=== PATIENT | female | born 1995 | race Hispanic/Latino ===

== ENCOUNTER 2017-05-20 19:40 | Inpatient (IN) | payer MEDICAID ==
[2017-05-20] MEDS ORDERED: POLYCILLIN/NS 2 GM/100 ML 2 GM/100 ML BAG IV ONE (20:36)
[2017-05-20] MEDS ORDERED: LACTATED RINGERS 1,000 ML IV SCH (22:00)
[2017-05-20] MEDS: PITOCin/NS 30 UNIT/500ML 30 UNITS/500 ML BAG IV SCH (22:49)
[2017-05-20 23:21] LABS: Hematocrit 39.5 % (30.3-42.9); Hemoglobin 13.1 gm/dl (10.1-14.3); Mean Corpuscular HGB Conc 33 % (30-34); Mean Corpuscular Hemoglobin 27 pg (28-32); Mean Corpuscular Volume 82 fl (79-97); Platelet Count 148 K/mm3 (140-440); Red Blood Count 4.84 M/mm3 (3.65-5.03); White Blood Count 12.5 K/mm3 (4.5-11.0)
[2017-05-20] MEDS ORDERED: XYLOCAINE 2% INFILTRATI ONE (23:35)
[2017-05-20] MEDS ORDERED: ePHEDrine SULFATE IV PRN (23:35)
[2017-05-20] MEDS ORDERED: MINERAL OIL PO PRN (23:35)
[2017-05-20] MEDS ORDERED: BRETHINE IVP PRN (23:35)
[2017-05-20] MEDS ORDERED: BRETHINE SUB-Q PRN (23:35)
[2017-05-20] MEDS ORDERED: PITOCin/NS 20 UNIT/1000ML DRIP 20 UNITS/1,000 ML BAG IV SCH (23:45)
[2017-05-21] MEDS: STADOL IV PRN ×2 (00:22→04:05)
--- NOTE | 2017-05-21 00:45 | History and Physical Report ---
History of Present Illness Date of examination: 05/21/17 Date of admission: 05/20/17 20:27 Chief complaint: My water broke History of present illness: Late transfer of care at 30 5/7 Weeks, Co-managed with [facility] due to obesity and late care. Audible Cardiac Arrhythmia heard on last visit. Past History Past Medical History: no pertinent history Past Surgical History: no surgical history Family/Genetic History: none Social history: no significant social history, - Obstetrical History Expected Date of Delivery: 05/23/17 Actual Gestation: 39 Week(s) 5 Day(s) : 1 Medications and Allergies Allergies Allergy/AdvReac Type Severity Reaction Status Date / Time No Known Allergies Allergy Verified 05/20/17 19:49 Home Medications Medication Instructions Recorded Confirmed Last Taken Type Tablet 1 tab PO DAILY 05/20/17 05/20/17 05/20/17 08:30 History Active Meds: Active Medications Butorphanol Tartrate (Stadol) 2 mg IV Q2H PRN PRN Reason: Labor Pain Last Admin: 05/21/17 00:22 Dose: 2 mg Oxytocin/Sodium Chloride (Pitocin/Ns 30 Unit/500ml) 30 units in 500 mls @ 2 mls /hr IV TITR GERARDO PRN Reason: Protocol Last Admin: 05/20/17 22:49 Dose: 2 ml/hr, 2 mls/hr Ampicillin Sodium (Polycillin/Ns 1 Gm/50 Ml) 1 gm in 50 mls @ 100 mls/hr IV Q4H GERARDO PRN Reason: Protocol Lactated Ringer's (Lactated Ringers) 1,000 mls @ 125 mls/hr IV DIRECT GERARDO Oxytocin/Sodium Chloride (Pitocin/Ns 20 Unit/1000ml Drip) 20 units in 1,000 mls @ 125 mls/hr IV DIRECT GERARDO Mineral Oil (Mineral Oil) 30 ml PO QHS PRN PRN Reason: Constipation Review of Systems All systems: negative - Vital Signs Vital signs: Vital Signs Pulse Pulse Ox 97 H 98 05/20/17 19:57 05/20/17 19:57 Temp Pulse Resp BP Pulse Ox 98.2 F 86 18 120/66 95 05/20/17 22:00 05/21/17 00:41 05/20/17 22:00 05/21/17 00:34 05/21/17 00:41 - Physical Exam Breasts: Positive: normal Cardiovascular: Regular rate Lungs: Positive: Clear to auscultation, Normal air movement Abdomen: Positive: normal appearance, soft, normal bowel sounds Genitourinary (Female): Positive: normal external genitalia, normal perenium Vagina: Positive: normal moisture Uterus: Positive: enlarged Anus/Rectum: Positive: normal perianal skin Extremities: Positive: normal - Obstetrical FHR: category 1 Uterine Contraction Monitor Mode: External Cervical Dilatation: 1.5 (Moderate amount of clear fluid leaking ) Cervical Effacement Percentage: 60 station: -3 Uterine Contraction Pattern: Regular Uterine Tone Measurement Phase: Resting Uterine Contraction Intensity: Moderate Results Result Diagrams: 05/20/17 22:08 Abnormal lab results 05/20/17 Range/Units 22:08 WBC 12.5 H (4.5-11.0) K/mm3 MCH 27 L (28-32) pg RDW 16.0 H (13.2-15.2) % All other labs normal. Assessment and Plan A: IUP @ 39 5/7 weeks Category I Tracing PROM GBs Positive P: Admit to L&D per Routine Orders Pitocin Induction GBS Prophylaxis
[2017-05-21] MEDS: POLYCILLIN/NS 1 GM/50 ML 1 GM/50 ML BAG IV SCH ×5 (02:19→18:43)
[2017-05-21] MEDS: LACTATED RINGERS 1,000 ML IV SCH ×3 (04:03→22:21)
[2017-05-21] MEDS ORDERED: ePHEDrine SULFATE ONE (07:52)
--- NOTE | 2017-05-21 08:41 | Anesthesia Consultation ---
Anesthesia Consult and Med Hx Date of service: 05/21/17 - Airway Anesthetic Teeth Evaluation: Good ROM Head & Neck: Adequate Mental/Hyoid Distance: Adequate Mallampati Class: Class III Intubation Access Assessment: Possibly Difficult - Pre-Operative Health Status ASA Pre-Surgery Classification: ASA3 Proposed Anesthetic Plan: Epidural, Spinal - Pulmonary Hx Asthma: No COPD: No Hx Pneumonia: No - Cardiovascular System Hx Hypertension: No - Central Nervous System Hx Seizures: No Hx Psychiatric Problems: No - Endocrine Hx Renal Disease: No Hx End Stage Renal Disease: No Hx Hypothyroidism: No Hx Hyperthyroidism: No - Hematic Hx Anemia: No Hx Sickle Cell Disease: No - Other Systems Hx Alcohol Use: No Hx Obesity: Yes (BMI 41.3)
[2017-05-21] MEDS ORDERED: NARCAN 2 MG/2 ML IV PRN (09:30)
[2017-05-21] MEDS ORDERED: ePHEDrine SULFATE IV PRN (09:30)
[2017-05-21] MEDS: fentaNYL-BUPIV 2 MCG/ML-0.125% 200 MCG/100 ML BAG EPIDURAL SCH ×2 (09:43→16:58)
--- NOTE | 2017-05-21 10:28 | Progress Note ---
Assessment and Plan A: IUP @ 39 6/7 weeks Category I Tracing PROM GBS Positive P: Continue Pitocin Induction Cook's Cervical Ripening Balloon placed Continue GBS Prophylaxis Subjective - Subjective Date of service: 05/21/17 Interval history: Late transfer of care at 30 5/7 Weeks, Co-managed with [facility] due to obesity and late care. Audible Cardiac Arrhythmia heard on last visit. Patient reports: loss of fluid, other (Stadol was ineffective; Requested Epidural; Currently resting well under epidural anesthesia) Objective - Vital Signs Vital Signs: Vital Signs - 12hr 05/20/17 05/20/17 05/20/17 22:28 22:33 22:38 Temperature Pulse Rate 101 H 101 H 96 H Respiratory Rate Blood Pressure O2 Sat by Pulse 95 96 96 Oximetry 05/20/17 05/20/17 05/20/17 22:43 22:48 22:53 Temperature Pulse Rate 93 H 86 94 H Respiratory Rate Blood Pressure O2 Sat by Pulse 96 96 96 Oximetry 05/20/17 05/20/17 05/20/17 22:57 22:58 23:03 Temperature Pulse Rate 90 93 H 90 Respiratory Rate Blood Pressure 93/51 O2 Sat by Pulse 96 96 Oximetry 05/20/17 05/20/17 05/20/17 23:08 23:13 23:18 Temperature Pulse Rate 92 H 93 H 89 Respiratory Rate Blood Pressure O2 Sat by Pulse 96 95 96 Oximetry 05/20/17 05/20/17 05/20/17 23:23 23:27 23:28 Temperature Pulse Rate 85 86 87 Respiratory Rate Blood Pressure 95/55 O2 Sat by Pulse 96 97 Oximetry 05/20/17 05/20/17 05/20/17 23:33 23:38 23:43 Temperature Pulse Rate 91 H 92 H 90 Respiratory Rate Blood Pressure O2 Sat by Pulse 96 96 96 Oximetry 05/20/17 05/20/17 05/20/17 23:48 23:53 23:58 Temperature Pulse Rate 84 87 83 Respiratory Rate Blood Pressure O2 Sat by Pulse 96 96 96 Oximetry 05/21/17 05/21/17 05/21/17 00:00 00:03 00:04 Temperature 98 F Pulse Rate 92 H 83 Respiratory 20 Rate Blood Pressure 127/76 O2 Sat by Pulse 97 Oximetry 05/21/17 05/21/17 05/21/17 00:08 00:13 00:21 Temperature Pulse Rate 90 92 H 97 H Respiratory Rate Blood Pressure O2 Sat by Pulse 97 95 96 Oximetry 05/21/17 05/21/17 05/21/17 00:26 00:31 00:34 Temperature Pulse Rate 95 H 82 81 Respiratory Rate Blood Pressure 120/66 O2 Sat by Pulse 96 97 Oximetry 05/21/17 05/21/17 05/21/17 00:36 00:41 00:46 Temperature Pulse Rate 95 H 86 87 Respiratory Rate Blood Pressure O2 Sat by Pulse 95 95 94 Oximetry 05/21/17 05/21/17 05/21/17 00:51 00:56 01:01 Temperature Pulse Rate 97 H 88 81 Respiratory Rate Blood Pressure O2 Sat by Pulse 95 93 94 Oximetry 05/21/17 05/21/17 05/21/17 01:05 01:06 01:11 Temperature Pulse Rate 85 100 H 81 Respiratory Rate Blood Pressure 124/68 O2 Sat by Pulse 96 95 Oximetry 05/21/17 05/21/17 05/21/17 01:16 01:21 01:26 Temperature Pulse Rate 81 83 80 Respiratory Rate Blood Pressure O2 Sat by Pulse 94 94 94 Oximetry 05/21/17 05/21/17 05/21/17 01:31 01:35 01:36 Temperature Pulse Rate 85 89 96 H Respiratory Rate Blood Pressure 120/59 O2 Sat by Pulse 94 96 Oximetry 05/21/17 05/21/17 05/21/17 01:41 01:46 01:51 Temperature Pulse Rate 94 H 82 94 H Respiratory Rate Blood Pressure O2 Sat by Pulse 95 94 95 Oximetry 05/21/17 05/21/17 05/21/17 01:57 02:00 02:02 Temperature 98.1 F Pulse Rate 93 H 94 H Respiratory 18 Rate Blood Pressure O2 Sat by Pulse 95 94 Oximetry 05/21/17 05/21/17 05/21/17 02:04 02:16 02:21 Temperature Pulse Rate 98 H 102 H 96 H Respiratory Rate Blood Pressure 131/66 O2 Sat by Pulse 96 96 Oximetry 05/21/17 05/21/17 05/21/17 02:26 02:31 02:34 Temperature Pulse Rate 97 H 101 H 96 H Respiratory Rate Blood Pressure 113/60 O2 Sat by Pulse 96 96 Oximetry 05/21/17 05/21/17 05/21/17 02:36 02:41 02:46 Temperature Pulse Rate 85 95 H 99 H Respiratory Rate Blood Pressure O2 Sat by Pulse 96 95 96 Oximetry 05/21/17 05/21/17 05/21/17 02:51 02:56 03:01 Temperature Pulse Rate 92 H 100 H 110 H Respiratory Rate Blood Pressure O2 Sat by Pulse 96 96 96 Oximetry 05/21/17 05/21/17 05/21/17 03:04 03:06 03:11 Temperature Pulse Rate 92 H 94 H 90 Respiratory Rate Blood Pressure 129/61 O2 Sat by Pulse 97 97 Oximetry 05/21/17 05/21/17 05/21/17 03:16 03:21 03:26 Temperature Pulse Rate 87 89 88 Respiratory Rate Blood Pressure O2 Sat by Pulse 96 94 95 Oximetry 05/21/17 05/21/17 05/21/17 03:31 03:34 03:36 Temperature Pulse Rate 89 90 93 H Respiratory Rate Blood Pressure 110/56 O2 Sat by Pulse 95 94 Oximetry 05/21/17 05/21/17 05/21/17 03:41 03:46 03:51 Temperature Pulse Rate 96 H 89 89 Respiratory Rate Blood Pressure O2 Sat by Pulse 95 95 96 Oximetry 05/21/17 05/21/17 05/21/17 03:56 04:00 04:01 Temperature 98.2 F Pulse Rate 95 H 80 Respiratory 18 Rate Blood Pressure O2 Sat by Pulse 96 97 Oximetry 05/21/17 05/21/17 05/21/17 04:04 04:06 04:11 Temperature Pulse Rate 89 88 83 Respiratory Rate Blood Pressure 124/65 O2 Sat by Pulse 97 96 Oximetry 05/21/17 05/21/17 05/21/17 04:16 04:21 04:26 Temperature Pulse Rate 84 89 82 Respiratory Rate Blood Pressure O2 Sat by Pulse 95 95 95 Oximetry 05/21/17 05/21/17 05/21/17 04:31 04:34 04:36 Temperature Pulse Rate 87 85 82 Respiratory Rate Blood Pressure 115/57 O2 Sat by Pulse 95 95 Oximetry 05/21/17 05/21/17 05/21/17 04:41 04:46 04:51 Temperature Pulse Rate 77 71 74 Respiratory Rate Blood Pressure O2 Sat by Pulse 95 95 95 Oximetry 05/21/17 05/21/17 05/21/17 04:56 05:01 05:04 Temperature Pulse Rate 81 72 73 Respiratory Rate Blood Pressure 109/59 O2 Sat by Pulse 95 95 Oximetry 05/21/17 05/21/17 05/21/17 05:06 05:11 05:16 Temperature Pulse Rate 76 90 103 H Respiratory Rate Blood Pressure O2 Sat by Pulse 94 96 96 Oximetry 05/21/17 05/21/17 05/21/17 05:21 05:26 05:31 Temperature Pulse Rate 86 85 84 Respiratory Rate Blood Pressure O2 Sat by Pulse 96 96 97 Oximetry 05/21/17 05/21/17 05/21/17 05:36 05:41 05:57 Temperature Pulse Rate 85 81 85 Respiratory Rate Blood Pressure 117/56 O2 Sat by Pulse 97 97 97 Oximetry 05/21/17 05/21/17 05/21/17 06:00 06:02 06:04 Temperature 98 F Pulse Rate 79 75 Respiratory 18 Rate Blood Pressure 119/71 O2 Sat by Pulse 97 Oximetry 05/21/17 05/21/17 05/21/17 06:07 06:12 06:17 Temperature Pulse Rate 82 81 86 Respiratory Rate Blood Pressure O2 Sat by Pulse 97 96 95 Oximetry 05/21/17 05/21/17 05/21/17 06:22 06:27 06:32 Temperature Pulse Rate 82 80 83 Respiratory Rate Blood Pressure O2 Sat by Pulse 96 95 96 Oximetry 05/21/17 05/21/17 05/21/17 06:34 06:37 06:42 Temperature Pulse Rate 85 79 82 Respiratory Rate Blood Pressure 116/77 O2 Sat by Pulse 96 96 Oximetry 05/21/17 05/21/17 05/21/17 06:47 06:52 06:57 Temperature Pulse Rate 74 74 89 Respiratory Rate Blood Pressure O2 Sat by Pulse 96 96 95 Oximetry 05/21/17 05/21/17 05/21/17 07:02 07:04 07:21 Temperature Pulse Rate 86 82 Respiratory 18 Rate Blood Pressure 121/78 O2 Sat by Pulse 96 Oximetry 05/21/17 05/21/17 05/21/17 08:23 08:27 08:28 Temperature Pulse Rate 87 88 83 Respiratory Rate Blood Pressure 129/80 117/77 O2 Sat by Pulse 99 99 Oximetry 05/21/17 05/21/17 05/21/17 08:29 08:31 08:33 Temperature Pulse Rate 85 88 90 Respiratory Rate Blood Pressure 116/73 119/76 112/76 O2 Sat by Pulse 83 L Oximetry 05/21/17 05/21/17 05/21/17 08:34 08:35 08:37 Temperature Pulse Rate 110 H 102 H Respiratory Rate Blood Pressure 114/79 112/59 O2 Sat by Pulse 85 Oximetry 05/21/17 05/21/17 05/21/17 08:38 08:39 08:41 Temperature Pulse Rate 95 H 94 H 93 H Respiratory Rate Blood Pressure 106/58 93/52 O2 Sat by Pulse 98 Oximetry 05/21/17 05/21/17 05/21/17 08:43 08:48 08:53 Temperature Pulse Rate 94 H 86 94 H Respiratory Rate Blood Pressure 97/54 O2 Sat by Pulse 98 97 97 Oximetry 05/21/17 05/21/17 05/21/17 08:54 08:58 09:03 Temperature Pulse Rate 90 101 H 86 Respiratory Rate Blood Pressure 104/59 O2 Sat by Pulse 97 97 Oximetry 05/21/17 05/21/17 05/21/17 09:08 09:10 09:13 Temperature Pulse Rate 83 89 82 Respiratory Rate Blood Pressure 109/66 O2 Sat by Pulse 97 97 Oximetry 05/21/17 05/21/17 05/21/17 09:18 09:23 09:25 Temperature Pulse Rate 80 77 75 Respiratory Rate Blood Pressure 109/65 O2 Sat by Pulse 96 96 Oximetry 05/21/17 05/21/17 05/21/17 09:28 09:33 09:38 Temperature Pulse Rate 79 79 75 Respiratory Rate Blood Pressure O2 Sat by Pulse 95 95 95 Oximetry 05/21/17 05/21/17 05/21/17 09:39 09:43 09:48 Temperature Pulse Rate 77 79 84 Respiratory Rate Blood Pressure 109/65 O2 Sat by Pulse 96 95 Oximetry 05/21/17 05/21/17 05/21/17 09:53 09:54 09:58 Temperature Pulse Rate 80 75 79 Respiratory Rate Blood Pressure 111/63 O2 Sat by Pulse 96 96 Oximetry 05/21/17 05/21/17 05/21/17 10:03 10:08 10:10 Temperature Pulse Rate 80 80 81 Respiratory Rate Blood Pressure 108/61 O2 Sat by Pulse 97 96 Oximetry 05/21/17 05/21/17 05/21/17 10:13 10:18 10:23 Temperature Pulse Rate 78 84 85 Respiratory Rate Blood Pressure O2 Sat by Pulse 99 98 98 Oximetry 05/21/17 10:25 Temperature Pulse Rate 82 Respiratory Rate Blood Pressure 115/70 O2 Sat by Pulse Oximetry - Exam Breasts: normal Cardiovascular: Regular rate Lungs: Clear to auscultation, Normal air movement Abdomen: Present: normal appearance, soft, normal bowel sounds Uterus: Present: normal, firm, fundal height above umbilicus FHR: category 1 Uterine Contraction Monitor Mode: External Cervical Dilatation: 2 (Leaking a moderate amount of clear fluid) Cervical Effacement Percentage: 40 station: -3 Uterine Contraction Pattern: Regular Uterine Tone Measurement Phase: Resting Uterine Contraction Intensity: Mild Extremities: normal - Labs Labs: Abnormal Labs 05/20/17 22:08 WBC 12.5 H MCH 27 L RDW 16.0 H Laboratory Results - last 24 hr 05/20/17 05/20/17 22:08 22:08 WBC 12.5 H RBC 4.84 Hgb 13.1 Hct 39.5 MCV 82 MCH 27 L MCHC 33 RDW 16.0 H Plt Count 148 Blood Type AB POSITIVE Antibody Screen Negative
--- NOTE | 2017-05-21 18:49 | Progress Note ---
Assessment and Plan A: IUP @ 39 6/7 weeks Category I Tracing PROM Prolongled Rupture (24hours) GBS Positive P: Continue Pitocin Induction Continue GBS Prophylaxis Add Clindamycin 900mg q 8 hours Internals x2 Subjective - Subjective Date of service: 05/21/17 Interval history: Late transfer of care at 30 5/7 Weeks, Co-managed with [facility] due to obesity and late care. Audible Cardiac Arrhythmia heard on last visit. Patient reports: other (Resting well under epidural) Objective - Vital Signs Vital Signs: Vital Signs - 12hr 05/21/17 05/21/17 05/21/17 06:47 06:52 06:57 Temperature Pulse Rate 74 74 89 Respiratory Rate Blood Pressure O2 Sat by Pulse 96 96 95 Oximetry 05/21/17 05/21/17 05/21/17 07:02 07:04 07:21 Temperature Pulse Rate 86 82 Respiratory 18 Rate Blood Pressure 121/78 O2 Sat by Pulse 96 Oximetry 05/21/17 05/21/17 05/21/17 08:23 08:27 08:28 Temperature Pulse Rate 87 88 83 Respiratory Rate Blood Pressure 129/80 117/77 O2 Sat by Pulse 99 99 Oximetry 05/21/17 05/21/17 05/21/17 08:29 08:31 08:33 Temperature Pulse Rate 85 88 90 Respiratory Rate Blood Pressure 116/73 119/76 112/76 O2 Sat by Pulse 83 L Oximetry 05/21/17 05/21/17 05/21/17 08:34 08:35 08:37 Temperature Pulse Rate 110 H 102 H Respiratory Rate Blood Pressure 114/79 112/59 O2 Sat by Pulse 85 Oximetry 05/21/17 05/21/17 05/21/17 08:38 08:39 08:41 Temperature Pulse Rate 95 H 94 H 93 H Respiratory Rate Blood Pressure 106/58 93/52 O2 Sat by Pulse 98 Oximetry 05/21/17 05/21/17 05/21/17 08:43 08:48 08:53 Temperature Pulse Rate 94 H 86 94 H Respiratory Rate Blood Pressure 97/54 O2 Sat by Pulse 98 97 97 Oximetry 05/21/17 05/21/17 05/21/17 08:54 08:58 09:03 Temperature Pulse Rate 90 101 H 86 Respiratory Rate Blood Pressure 104/59 O2 Sat by Pulse 97 97 Oximetry 05/21/17 05/21/1717 09:08 09:10 09:13 Temperature Pulse Rate 83 89 82 Respiratory Rate Blood Pressure 109/66 O2 Sat by Pulse 97 97 Oximetry 05/21/17 05/21/17 05/21/17 09:18 09:23 09:25 Temperature Pulse Rate 80 77 75 Respiratory Rate Blood Pressure 109/65 O2 Sat by Pulse 96 96 Oximetry 05/21/17 05/21/17 05/21/17 09:28 09:33 09:38 Temperature Pulse Rate 79 79 75 Respiratory Rate Blood Pressure O2 Sat by Pulse 95 95 95 Oximetry 05/21/17 05/21/17 05/21/17 09:39 09:43 09:48 Temperature Pulse Rate 77 79 84 Respiratory Rate Blood Pressure 109/65 O2 Sat by Pulse 96 95 Oximetry 05/21/17 05/21/17 05/21/17 09:53 09:54 09:58 Temperature Pulse Rate 80 75 79 Respiratory Rate Blood Pressure 111/63 O2 Sat by Pulse 96 96 Oximetry 05/21/17 05/21/17 05/21/17 10:03 10:08 10:10 Temperature Pulse Rate 80 80 81 Respiratory Rate Blood Pressure 108/61 O2 Sat by Pulse 97 96 Oximetry 05/21/17 05/21/17 05/21/17 10:13 10:18 10:23 Temperature Pulse Rate 78 84 85 Respiratory Rate Blood Pressure O2 Sat by Pulse 99 98 98 Oximetry 05/21/17 05/21/17 05/21/17 10:25 10:28 10:33 Temperature Pulse Rate 82 85 79 Respiratory Rate Blood Pressure 115/70 O2 Sat by Pulse 99 98 Oximetry 05/21/17 05/21/17 05/21/17 10:38 10:41 10:43 Temperature Pulse Rate 76 80 78 Respiratory Rate Blood Pressure 117/70 O2 Sat by Pulse 98 96 Oximetry 05/21/17 05/21/17 05/21/17 10:48 10:53 10:54 Temperature Pulse Rate 74 72 78 Respiratory Rate Blood Pressure 113/65 O2 Sat by Pulse 96 97 Oximetry 05/21/17 05/21/17 05/21/17 10:58 11:03 11:08 Temperature Pulse Rate 78 75 73 Respiratory Rate Blood Pressure O2 Sat by Pulse 95 97 96 Oximetry 05/21/17 05/21/17 05/21/17 11:09 11:13 11:18 Temperature Pulse Rate 78 78 76 Respiratory Rate Blood Pressure 108/62 O2 Sat by Pulse 96 98 Oximetry 05/21/17 05/21/17 05/21/17 11:23 11:24 11:28 Temperature Pulse Rate 75 80 75 Respiratory Rate Blood Pressure 112/62 O2 Sat by Pulse 98 97 Oximetry 05/21/17 05/21/17 05/21/17 11:33 11:38 11:39 Temperature Pulse Rate 76 80 92 H Respiratory Rate Blood Pressure 104/60 O2 Sat by Pulse 95 96 Oximetry 05/21/17 05/21/17 05/21/17 11:43 11:48 11:53 Temperature Pulse Rate 73 77 83 Respiratory Rate Blood Pressure O2 Sat by Pulse 97 97 96 Oximetry 05/21/17 05/21/17 05/21/17 11:55 11:58 12:03 Temperature Pulse Rate 81 75 76 Respiratory Rate Blood Pressure 106/57 O2 Sat by Pulse 96 95 Oximetry 05/21/17 05/21/17 05/21/17 12:08 12:11 12:13 Temperature Pulse Rate 80 81 76 Respiratory Rate Blood Pressure 106/62 O2 Sat by Pulse 95 97 Oximetry 05/21/17 05/21/17 05/21/17 12:18 12:23 12:24 Temperature Pulse Rate 73 84 85 Respiratory Rate Blood Pressure 104/56 O2 Sat by Pulse 96 95 Oximetry 05/21/17 05/21/17 05/21/17 12:28 12:33 12:38 Temperature Pulse Rate 83 75 83 Respiratory Rate Blood Pressure O2 Sat by Pulse 98 97 99 Oximetry 05/21/17 05/21/17 05/21/17 12:40 12:43 12:48 Temperature Pulse Rate 88 83 79 Respiratory Rate Blood Pressure 107/64 O2 Sat by Pulse 98 97 Oximetry 05/21/17 05/21/17 05/21/17 12:53 12:56 12:58 Temperature Pulse Rate 90 78 88 Respiratory Rate Blood Pressure 119/70 O2 Sat by Pulse 96 98 Oximetry 05/21/17 05/21/17 05/21/17 13:03 13:08 13:09 Temperature Pulse Rate 90 85 78 Respiratory Rate Blood Pressure 122/69 O2 Sat by Pulse 98 98 Oximetry 05/21/17 05/21/17 05/21/17 13:13 13:18 13:23 Temperature Pulse Rate 95 H 77 73 Respiratory Rate Blood Pressure O2 Sat by Pulse 99 98 97 Oximetry 05/21/17 05/21/17 05/21/17 13:24 13:28 13:33 Temperature Pulse Rate 82 81 79 Respiratory Rate Blood Pressure 132/76 O2 Sat by Pulse 99 99 Oximetry 05/21/17 05/21/17 05/21/17 13:38 13:39 13:43 Temperature Pulse Rate 77 77 83 Respiratory Rate Blood Pressure 133/73 O2 Sat by Pulse 97 98 Oximetry 05/21/17 05/21/17 05/21/17 13:48 13:51 13:53 Temperature 98.6 F Pulse Rate 80 82 Respiratory 20 Rate Blood Pressure O2 Sat by Pulse 98 97 Oximetry 05/21/17 05/21/17 05/21/17 13:54 13:58 14:03 Temperature Pulse Rate 84 78 80 Respiratory Rate Blood Pressure 118/64 O2 Sat by Pulse 97 97 Oximetry 05/21/17 05/21/17 05/21/17 14:08 14:09 14:13 Temperature Pulse Rate 77 84 79 Respiratory Rate Blood Pressure 124/80 O2 Sat by Pulse 97 97 Oximetry 05/21/17 05/21/17 05/21/17 14:18 14:23 14:25 Temperature Pulse Rate 81 81 76 Respiratory Rate Blood Pressure 127/67 O2 Sat by Pulse 98 97 Oximetry 05/21/17 05/21/17 05/21/17 14:28 14:33 14:38 Temperature Pulse Rate 80 77 78 Respiratory Rate Blood Pressure O2 Sat by Pulse 95 95 95 Oximetry 05/21/17 05/21/17 05/21/17 14:39 14:43 14:48 Temperature Pulse Rate 75 76 77 Respiratory Rate Blood Pressure 120/56 O2 Sat by Pulse 95 94 Oximetry 05/21/17 05/21/17 05/21/17 14:53 14:54 14:58 Temperature Pulse Rate 75 75 77 Respiratory Rate Blood Pressure 125/60 O2 Sat by Pulse 94 94 Oximetry 05/21/17 05/21/17 05/21/17 15:03 15:06 15:08 Temperature 98.5 F Pulse Rate 83 94 H Respiratory 22 Rate Blood Pressure O2 Sat by Pulse 94 95 Oximetry 05/21/17 05/21/17 05/21/17 15:10 15:13 15:18 Temperature Pulse Rate 87 83 92 H Respiratory Rate Blood Pressure 136/67 O2 Sat by Pulse 97 98 Oximetry 05/21/17 05/21/17 05/21/17 15:23 15:25 15:28 Temperature Pulse Rate 101 H 90 89 Respiratory Rate Blood Pressure 134/74 O2 Sat by Pulse 98 98 Oximetry 05/21/17 05/21/17 05/21/17 15:33 15:38 15:39 Temperature Pulse Rate 81 81 88 Respiratory Rate Blood Pressure 112/64 O2 Sat by Pulse 97 96 Oximetry 05/21/17 05/21/17 05/21/17 15:43 15:48 15:53 Temperature Pulse Rate 82 85 86 Respiratory Rate Blood Pressure O2 Sat by Pulse 94 96 94 Oximetry 05/21/17 05/21/17 05/21/17 15:54 15:58 16:03 Temperature Pulse Rate 82 79 84 Respiratory Rate Blood Pressure 122/64 O2 Sat by Pulse 95 95 Oximetry 05/21/17 05/21/17 05/21/17 16:08 16:10 16:13 Temperature Pulse Rate 86 104 H 82 Respiratory Rate Blood Pressure 116/61 O2 Sat by Pulse 96 95 Oximetry 05/21/17 05/21/17 05/21/17 16:18 16:23 16:24 Temperature Pulse Rate 79 82 84 Respiratory Rate Blood Pressure 122/62 O2 Sat by Pulse 96 96 Oximetry 05/21/17 05/21/17 05/21/17 16:28 16:33 16:38 Temperature Pulse Rate 81 96 H 95 H Respiratory Rate Blood Pressure O2 Sat by Pulse 95 97 98 Oximetry 05/21/17 05/21/17 05/21/17 16:40 16:43 16:48 Temperature Pulse Rate 93 H 92 H 96 H Respiratory Rate Blood Pressure 105/54 O2 Sat by Pulse 98 98 Oximetry 05/21/17 05/21/17 05/21/17 16:53 16:54 16:58 Temperature Pulse Rate 99 H 96 H 94 H Respiratory Rate Blood Pressure 101/59 O2 Sat by Pulse 99 99 Oximetry 05/21/17 05/21/17 05/21/17 17:03 17:08 17:09 Temperature Pulse Rate 93 H 93 H 90 Respiratory Rate Blood Pressure 109/60 O2 Sat by Pulse 98 97 Oximetry 05/21/17 05/21/17 05/21/17 17:13 17:18 17:23 Temperature Pulse Rate 92 H 91 H 92 H Respiratory Rate Blood Pressure O2 Sat by Pulse 98 97 97 Oximetry 05/21/17 05/21/17 05/21/17 17:24 17:28 17:33 Temperature Pulse Rate 92 H 88 88 Respiratory Rate Blood Pressure 106/59 O2 Sat by Pulse 97 96 Oximetry 05/21/17 05/21/17 05/21/17 17:38 17:39 17:43 Temperature Pulse Rate 92 H 85 90 Respiratory Rate Blood Pressure 112/61 O2 Sat by Pulse 96 96 Oximetry 05/21/17 05/21/17 05/21/17 17:48 17:53 17:54 Temperature Pulse Rate 92 H 91 H 86 Respiratory Rate Blood Pressure 111/59 O2 Sat by Pulse 96 96 Oximetry 05/21/17 05/21/17 05/21/17 17:58 18:03 18:08 Temperature Pulse Rate 91 H 92 H 97 H Respiratory Rate Blood Pressure O2 Sat by Pulse 97 96 96 Oximetry 05/21/17 05/21/17 05/21/17 18:11 18:13 18:18 Temperature Pulse Rate 98 H 92 H 90 Respiratory Rate Blood Pressure 115/59 O2 Sat by Pulse 96 96 Oximetry 05/21/17 05/21/17 05/21/17 18:23 18:25 18:29 Temperature Pulse Rate 92 H 103 H Respiratory Rate Blood Pressure 116/64 O2 Sat by Pulse 97 96 Oximetry 05/21/17 05/21/17 05/21/17 18:34 18:39 18:40 Temperature 99.2 F Pulse Rate 110 H 113 H Respiratory 22 Rate Blood Pressure 96/55 O2 Sat by Pulse 98 99 Oximetry 05/21/17 18:44 Temperature Pulse Rate 101 H Respiratory Rate Blood Pressure O2 Sat by Pulse 98 Oximetry - Exam Breasts: normal Cardiovascular: Regular rate Abdomen: Present: normal appearance, soft, normal bowel sounds Uterus: Present: normal, firm, fundal height above umbilicus FHR: category 1 Uterine Contraction Monitor Mode: Internal Cervical Dilatation: 4 (leaking a small amount of clear fluid ) Cervical Effacement Percentage: 80 station: -1 Uterine Contraction Pattern: Regular - Labs Labs: Abnormal Labs 05/20/17 22:08 WBC 12.5 H MCH 27 L RDW 16.0 H Laboratory Results - last 24 hr 05/20/17 05/20/17 22:08 22:08 WBC 12.5 H RBC 4.84 Hgb 13.1 Hct 39.5 MCV 82 MCH 27 L MCHC 33 RDW 16.0 H Plt Count 148 Blood Type AB POSITIVE Antibody Screen Negative
--- NOTE | 2017-05-21 19:27 | Event Note ---
Date: 05/21/17 Dr. Ivis Ferrari Consulted and updated due to prolonged rupture Agrees with current plan of care
[2017-05-21] MEDS: CLEOCIN 900 MG/50 mL 900 MG/50 ML BAG IV SCH (19:28)
[2017-05-22] MEDS: CLEOCIN 900 MG/50 mL 900 MG/50 ML BAG IV SCH (04:55)
[2017-05-22] MEDS: PITOCin/NS 30 UNIT/500ML 30 UNITS/500 ML BAG IV SCH ×4 (07:48→09:11)
[2017-05-22] MEDS ORDERED: POLYCILLIN/NS 1 GM/50 ML 1 GM/50 ML BAG IV SCH (08:00)
[2017-05-22] MEDS: fentaNYL-BUPIV 2 MCG/ML-0.125% 200 MCG/100 ML BAG EPIDURAL SCH (08:33)
[2017-05-22] MEDS: LACTATED RINGERS 1,000 ML IV SCH (08:40)
--- NOTE | 2017-05-22 09:11 | Event Note ---
Date: 05/22/17 O: O: VE anterior rim/C/+1, CAT I tracing, pit increased to 12 mu A: Active labor P: Expect
[2017-05-22] MEDS ORDERED: METHERGINE IM ONE ×2 (10:56→11:06)
[2017-05-22] MEDS ORDERED: CYTOTEC ONE (10:56)
[2017-05-22] MEDS ORDERED: CYTOTEC PR ONE (11:05)
[2017-05-22] MEDS ORDERED: TYLENOL PO PRN (11:17)
--- NOTE | 2017-05-22 11:21 | Procedure Note ---
OB Delivery Note - Delivery Date of Delivery: 05/22/17 Surgeon: PERI JACKSON Estimated blood loss: 200cc - Vaginal Delivery presentation: vertex Delivery position: OA Intrapartum events: meconium (terminal) Delivery induction: oxytocin Delivery augmentation: rupture of membranes Delivery monitor: external FHT, external uterine, internal FHT, internal uterine Route of delivery: Delivery placenta: spontaneous, uterine exploration Delivery cord: 3 umbilical vessels Delivery laceration: vaginal side wall (bilateral first degree) Delivery repair: vicryl Anesthesia: epidural Delivery comments: of a viable male 8# 2 oz on 05/22/2017 @ 1048 over intact perineum. Loose nuchal cord x one. Apgars 7/8. Placenta delivered 3VCI, however manual exploration done for retained membranes. Cytotec 8oo mg per rectum and methergine 0.2mg Im x one dose. Fundus now firm. Bilateral vaginal wall lacerations repaired with 2-0 vicryl. EBL 200 cc. Mother and baby doing well. - A at 1 minute: 7 at 5 minutes: 8 Gender: Male (8# 2oz, loose nuchal cord)
[2017-05-22] MEDS ORDERED: ZOFRAN IV PRN (11:27)
[2017-05-22] MEDS ORDERED: SODIUM CHLORIDE FLUSH SYRINGE 10 ML IV NR (12:00)
[2017-05-22] MEDS ORDERED: TUCKS PAD TP ONE (13:00)
[2017-05-22] MEDS ORDERED: DERMOPLAST TP PRN (13:03)
[2017-05-22] MEDS: LANSINOH TP PRN ×2 (13:19→19:57)
[2017-05-22] MEDS: NORCO 5/325 PO PRN ×2 (13:19→22:53)
[2017-05-22] MEDS: MOTRIN PO SCH ×2 (13:20→22:52)
[2017-05-22] MEDS: TUCKS PAD TP PRN (13:21)
[2017-05-22 23:15] LABS: Hematocrit 37.3 % (30.3-42.9); Hemoglobin 12.1 gm/dl (10.1-14.3)
[2017-05-23] MEDS: MOTRIN PO SCH ×2 (06:17→12:34)
[2017-05-23] MEDS: NORCO 5/325 PO PRN ×2 (08:37→21:27)
--- NOTE | 2017-05-23 09:24 | Progress Note ---
Assessment and Plan A: day 1 S/P spontaneous vaginal delivery. P: Anticipate discharge tomorrow. Subjective - Subjective Date of service: 05/23/17 Principal diagnosis: day 1 S/P spontaneous vaginal delivery on Interval history: day 1 S/P spontaneous vaginal delivery on 05/22/17. Baby in NICU but doing well. Patient is voiding without difficulty and ambulating well. She is tolerating a regular diet without nausea or vomiting. Patient reports small amount of lochia. Patient denies headache, chest pain, shortness of breath, cough, abdominal pain, leg pain, heavy vaginal bleeding, or symptoms of depression. Patient is undecided regarding contraception . Patient reports: appetite normal, voiding normally, pain well controlled, ambulating normally : doing well, in NICU Objective - Vital Signs Latest vital signs: Vital Signs Temp Pulse Resp BP BP 05/23/17 01:34 97.5 F L 78 18 100/54 05/22/17 22:53 20 05/22/17 22:52 20 05/22/17 21:50 97.7 F 86 18 119/75 05/22/17 16:55 98.0 F 99 H 20 128/76 05/22/17 11:55 98.3 F 105 H 20 130/76 130/75 05/22/17 11:39 108 H 20 129/70 129/70 05/22/17 11:24 105 H 130/70 05/22/17 11:22 105 H 20 130/70 05/22/17 11:16 112 H 129/58 05/22/17 11:13 98.5 F 112 H 20 129/58 05/22/17 10:55 114 H 127/61 05/22/17 10:54 108 H 128/57 05/22/17 10:40 105 H 131/66 05/22/17 10:25 116 H 139/80 05/22/17 10:10 113 H 116/91 05/22/17 09:54 93 H 115/57 05/22/17 09:40 86 109/60 05/22/17 09:24 92 H 111/55 Intake and Output 05/22/17 05/23/17 05/23/17 22:59 06:59 14:59 Intake Total 360 120 Balance 360 120 Intake: Intake, Free Water 360 120 Other: # Voids Indwelling Catheter 1 - Exam Breasts: Present: deferred Cardiovascular: Present: Regular rate Lungs: Present: Clear to auscultation Abdomen: Present: normal appearance, soft. Absent: distention, tenderness, guarding Uterus: Present: normal, firm, fundal height below umbilicus Extremities: Present: normal. Absent: tenderness, edema
[2017-05-23] MEDS: TUCKS PAD TP PRN (12:36)
[2017-05-23] MEDS: COLACE PO SCH ×2 (12:36→21:27)
[2017-05-23] MEDS: LANSINOH TP PRN (12:44)
--- NOTE | 2017-05-23 16:27 | Progress Note ---
Subjective Date of service: 05/23/17 Principal diagnosis: day 1 S/P spontaneous vaginal delivery on Interval history: no anesthetic related complaints. Objective - Constitutional Vitals: Vital Signs - 12hr 05/23/17 07:53 Temperature 97.5 F L Pulse Rate 81 Respiratory 16 Rate Blood Pressure 117/81 O2 Sat by Pulse 98 Oximetry - Labs CBC & Chem 7: 05/22/17 22:43
[2017-05-24] MEDS: MOTRIN PO SCH ×3 (01:00→12:08)
[2017-05-24] MEDS: LANSINOH TP PRN (03:59)
--- NOTE | 2017-05-24 09:00 | Progress Note ---
Assessment and Plan A: day 2. P: Discharge patient home this afternoon. Discussed with patient discharge instructions and warning signs. Advised patient to avoid IC and sexual activity for 6 weeks. Advised patient to avoid heavy lifting, driving, heavy housework. Advised patient to follow up with [facility] in 6 weeks. Patient voiced understanding of all of the above instructions. Subjective - Subjective Date of service: 05/24/17 Principal diagnosis: day 2 S/P spontaneous vaginal delivery on Interval history: day 2 S/P spontaneous vaginal delivery. Bottlefeeding. Baby in NICU. Patient is voiding without difficulty and ambulating well. She is tolerating a regular diet without nausea or vomiting. Patient denies headache, visual disturbance, cough, chest pain, shortness of breath, abdominal pain, leg pain, heavy vaginal bleeding, foul smelling discharge, symptoms of depression, or any other symptoms. Patient is undecided regarding contraception. Patient reports: appetite normal, voiding normally, pain well controlled, ambulating normally [place]: doing well, in NICU Objective - Vital Signs Latest vital signs: Vital Signs Temp Pulse Resp BP 05/24/17 01:00 97.7 F 68 18 123/80 Intake and Output 05/23/17 05/24/17 05/24/17 22:59 06:59 14:59 Intake Total 360 Balance 360 Intake: Intake, Free Water 360 Other: # Voids Void 1 - Exam Breasts: Present: deferred Cardiovascular: Present: Regular rate, No murmurs Lungs: Present: Clear to auscultation Abdomen: Present: normal appearance, soft. Absent: distention, tenderness, guarding Uterus: Present: normal, firm, fundal height below umbilicus. Absent: bogginess , tenderness Extremities: Present: normal. Absent: tenderness, edema
--- NOTE | 2017-05-24 09:04 | Discharge Summary ---
Providers - Providers Date of Admission: 05/20/17 20:27 Date of discharge: 05/24/17 Attending physician: FIGUEROA TAVARES MD None Primary care physician: FIGUEROA TAVARES MD Hospitalization Reason for admission: induction of labor, rupture of membranes Delivery: Episiotomy: none Laceration: 1st degree Other procedures: none complications: none Discharge diagnosis: IUP at term delivered [place] baby: male Pertinent studies: Labs Hospital course: Normal hospital course Condition at discharge: Good Disposition: DC-01 TO HOME OR SELFCARE - Discharge Diagnoses (1) Term delivered Status: Acute Plan - Provider Discharge Summary Activity: routine, no sex for 6 weeks, no heavy lifting 4 weeks, no strenuous exercise Diet: routine Instructions: routine Additional instructions: [] Call your doctor immediately for: * Fever > 100.5 * Heavy vaginal bleeding ( >1 pad per hour) * Severe persistent headache * Shortness of breath * Reddened, hot, painful area to leg or breast * Drainage or odor from incision. - Follow up plan Follow up: FIGUEROA TAVARES MD [Primary Care Provider] - 6 Weeks
[2017-05-24 09:42] VITALS: BP 119/80
== END 2017-05-24 16:45 | disposition home or self-care (01) | DRG 775 ==
LOC: TRG 19:40 → LD 20:27 → TRG 20:27 → OB 05-22 12:42
PROVIDERS: ADMIT Obstetrics & Gynecology; ATTEND Obstetrics & Gynecology
PROC: 10E0XZZ Delivery of Products of Conception, External Approach (ICD-10-PCS; principal; 2017-05-22)
PROC: 3E033VJ Introduction of Other Hormone into Peripheral Vein, Percutaneous Approach (ICD-10-PCS; 2017-05-22)
PROC: 0HQ9XZZ Repair Perineum Skin, External Approach (ICD-10-PCS; 2017-05-22)
PROC: 3E0S3CZ (ICD-10-PCS; 2017-05-22)
PROC: 00HU33Z Insertion of Infusion Device into Spinal Canal, Percutaneous Approach (ICD-10-PCS; 2017-05-22)
DX: O99.824 Streptococcus B carrier state complicating childbirth (principal); O42.92 Full-term premature rupture of membranes, unspecified as to length of time between rupture and onset of labor; O99.214 Obesity complicating childbirth; O77.0 Labor and delivery complicated by meconium in amniotic fluid; E66.9 Obesity, unspecified; O70.0 First degree perineal laceration during delivery; Z37.0 Single live birth; Z3A.39 39 weeks gestation of pregnancy; O69.81X0 Labor and delivery complicated by cord around neck, without compression, not applicable or unspecified
CPT/HCPCS: 36415; 85014; 85018; 85027; 86850; 86900; 86901; 99211; A6250; G0463; J0290; J0595; J2210; J2590; J7120